=== PATIENT | female | born 1975 | race Caucasian/White ===

== ENCOUNTER 2017-02-07 17:33 | Emergency (ER) | payer OTHER ==
[2017-02-07 17:47] VITALS: BP 112/60
[2017-02-07] MEDS ORDERED: Silver Sulfadiazine 1%* 20 GM TOPICAL ONE (17:54)
--- NOTE | 2017-02-07 17:56 | UC ---
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 - History of Current Complaint Chief Complaint: [employer] Stated Complaint: blisters on finger from paint thinner Time Seen by Provider: 02/07/17 17:38 Hx Obtained From: Patient Occurred: Hours Ago Length of Exposure: Minutes Onset Severity: Mild Current Severity: Mild Pain Intensity: 3 Pain Scale Used: 0-10 Numeric Location: RUE Character: Chemical Aggravating: Nothing Alleviating: Cool Soaks Associated Signs & Symptoms: Positive: Negative Occupational Injury: No - Allergy/Home Medications Allergies/Adverse Reactions: Allergies Allergy/AdvReac Type Severity Reaction Status Date / Time No Known Allergies Allergy Verified 02/07/17 17:47 PMH/Surg Hx/FS Hx/Imm Hx Previously Healthy: Yes - Surgical History Surgical History: Yes Surgery Procedure, Year, and Place: wisdom teeth - Family History Known Family History: Positive: None - Social History Occupation: Employed Full-time Lives: With Family Alcohol Use: Rare Substance Use Type: None Smoking Status (MU): Never Smoked Tobacco - Immunization History Most Recent Influenza Vaccination: never Most Recent Tetanus Shot: refused tetanus update 02/07/17 Review of Systems Constitutional: Negative Skin: Other - erythema an open blisters on right index finger Eyes: Negative ENT: Negative Respiratory: Negative Cardiovascular: Negative Gastrointestinal: Negative Genitourinary: Negative Motor: Negative Neurovascular: Negative Musculoskeletal: Negative Neurological: Negative Psychological: Negative All Other Systems Reviewed And Are Negative: Yes Physical Exam Triage Information Reviewed: Yes Appearance: Well-Appearing, No Pain Distress, Well-Nourished Vital Signs: Initial Vital Signs Temp 99.8 F 02/07/17 17:43 Pulse 76 02/07/17 17:43 Resp 16 02/07/17 17:43 BP 112/60 02/07/17 17:43 Pulse Ox 99 02/07/17 17:43 Vital Signs Reviewed: Yes Eye Exam: Normal Eyes: Positive: Conjunctiva Clear ENT Exam: Normal ENT: Positive: Normal ENT inspection, Hearing grossly normal. Negative: Nasal congestion, Nasal drainage, Trismus, Muffled/hoarse voice Dental Exam: Normal Neck exam: Normal Neck: Positive: Supple, Nontender Respiratory Exam: Normal Respiratory: Positive: Chest non-tender, No respiratory distress, No accessory muscle use Cardiovascular Exam: Normal Cardiovascular: Positive: RRR, Pulses Normal, Brisk Capillary Refill Musculoskeletal Exam: Normal Musculoskeletal: Positive: Strength Intact, ROM Intact, No Edema Neurological Exam: Normal Neurological: Positive: Alert, Muscle Tone Normal, Fatigued Psychological Exam: Normal Skin Exam: Other Skin: Positive: Other - chemical burn as described Burn Calculation - [place] Formula for Fluid Resuscitation Weight: 63.503 kg 24 -Hour Fluid Replacement: 0.0 Re-Evaluation - Re-Evaluation First Eval Change: Improved - silvadene and dressing applied Course/Dx Burn - Course Course Of Treatment: soap and water wash bid dressing, silvadene, refused updating tetanus - Differential Dx - Burn Differential Diagnoses: Chemical Burn - Diagnoses Clinic Provider Diagnoses: Chemical burn right index finger Discharge - Discharge Plan Condition: Stable Disposition: HOME Patient Education Materials: Ibuprofen (By mouth), Chemical Skin Burn (ED) Referrals: Sandra Ocampo NP [Primary Care Provider] - If Needed
== END 2017-02-07 18:10 | disposition home or self-care (01) ==
LOC: UCEAST 17:33
DX: T23.421A Corrosion of unspecified degree of single right finger (nail) except thumb, initial encounter (principal)
CPT/HCPCS: 99213; A9270-GY; G0463